=== PATIENT | male | born 1960 | race Caucasian/White ===

== ENCOUNTER 2016-07-17 17:04 | Emergency (ER) | payer OTHER ==
[2016-07-17] MEDS ORDERED: LIDOCAINE 2% ABBOJECT 100 MG/5 ML SYRINGE ONE (17:39)
[2016-07-17] MEDS ORDERED: LIDOCAINE 2% 10 ML MDV ONE (17:39)
[2016-07-17] MEDS ORDERED: LIDOCAINE 2% 10 ML MDV SUBQ STA (17:39)
[2016-07-17] MEDS ORDERED: HYDROcod/ACETAM 5/325 MG TABLET PO STA (18:07)
[2016-07-17] MEDS ORDERED: CEPHALEXIN 250 MG CAPSULE PO STA (18:07)
[2016-07-17] MEDS ORDERED: HYDROcod/ACETAM 5/325 MG TABLET ONE (18:19)
[2016-07-17] MEDS ORDERED: CEPHALEXIN 250 MG CAPSULE PO ONE (18:19)
== END 2016-07-17 19:27 | disposition home or self-care (01) ==
DX: S61.211A Laceration without foreign body of left index finger without damage to nail, initial encounter (principal); W31.2XXA Contact with powered woodworking and forming machines, initial encounter
CPT/HCPCS: 12042; 73140; 99283; A9270

== ENCOUNTER 2016-11-20 15:08 | Outpatient (CLI) | payer OTHER | END 2016-11-20 15:09 | disposition EMS.NT | LOC: EMS 15:08 | PROVIDERS: ATTEND Surgery | DX: R07.9 Chest pain, unspecified (principal) ==

== ENCOUNTER 2020-05-26 08:33 | Outpatient (CLI) | payer OTHER ==
[2020-05-26 15:06] LABS: HGB - HEMOGLOBIN 14.8 g/dL (14.0-18.0); MEAN CORPUSCULAR HEMOGLOBIN 32.2 pg (27.0-31.0); MEAN CORPUSCULAR HGB CONC 32.8 g/dL (32.0-36.0); MEAN CORPUSCULAR VOLUME 98.3 fL (80.0-94.0); MEAN PLATELET VOLUME 11.2 fL (7.4-11.4); RED BLOOD COUNT 4.59 10^6/uL (4.70-6.10); RED CELL DISTRIBUTION WIDTH 12.7 % (12.0-15.0); WHITE BLOOD COUNT 4.7 x10^3/uL (4.8-10.8)
[2020-05-26 15:50] LABS: BUN - BLOOD UREA NITROGEN 17 mg/dL (6-20); CALCIUM 9.5 mg/dL (8.5-10.3); CARBON DIOXIDE - CO2 25 mmol/L (21-32); CHLORIDE 102 mmol/L (101-111); CHOL/HDL RATIO 3.2 (<5.0); CHOLESTEROL 182 mg/dL; GLUCOSE 106 mg/dL (70-100); HDL CHOLESTEROL 57 mg/dL; LDL CHOLESTEROL,CALCULATED 115 mg/dL; VLDL CHOLESTEROL 10 mg/dL
[2020-05-27 12:07] LABS: HEPATITIS C ANTIBODY NON-REACTIVE (NON-REACTIVE)
[2020-05-27 15:14] LABS: HIV AG/AB 4TH GEN NON-REACTIVE (NON-REACTIVE)
== END 2020-05-26 08:34 | disposition home or self-care (01) ==
LOC: LAB.S 08:33
PROVIDERS: ATTEND Family Medicine
DX: Z01.89 Encounter for other specified special examinations (principal); G35 Multiple sclerosis; R73.9 Hyperglycemia, unspecified; Z13.6 Encounter for screening for cardiovascular disorders; Z11.59 Encounter for screening for other viral diseases; Z11.4 Encounter for screening for human immunodeficiency virus [HIV]
CPT/HCPCS: 36415; 80048; 80061; 82607; 83721; 84153; 84443; 85027; 86803; 87389

== ENCOUNTER 2022-07-09 11:05 | Outpatient (CLI) | payer OTHER | END 2022-07-09 23:59 | disposition left against medical advice (07) | LOC: EMS 11:05 | DX: R07.89 Other chest pain (principal) ==

== ENCOUNTER 2022-07-09 12:13 | Emergency (ER) | payer OTHER ==
[2022-07-09 12:43] LABS: BASOPHILS # (AUTO) 0.1 10^3/uL (0.0-0.1); BASOPHILS % (AUTO) 0.9 %; EOSINOPHILS # (AUTO) 0.1 10^3/uL (0.0-0.7); EOSINOPHILS % (AUTO) 2.2 %; HCT - HEMATOCRIT 45.3 % (42.0-52.0); HGB - HEMOGLOBIN 15.2 g/dL (14.0-18.0); LYMPHOCYTES # (AUTO) 1.9 10^3/uL (1.5-3.5); LYMPHOCYTES % (AUTO) 30.1 %; MEAN CORPUSCULAR HEMOGLOBIN 31.5 pg (27.0-31.0); MEAN CORPUSCULAR HGB CONC 33.6 g/dL (32.0-36.0); MEAN CORPUSCULAR VOLUME 93.8 fL (80.0-94.0); MEAN PLATELET VOLUME 10.2 fL (7.4-11.4); MONOCYTES # (AUTO) 0.8 10^3/uL (0.0-1.0); MONOCYTES % (AUTO) 11.6 %; NEUTROPHILS # (AUTO) 3.5 10^3/uL (1.5-6.6); PLT - PLATELET COUNT 205 10^3/uL (130-450); RED BLOOD COUNT 4.83 10^6/uL (4.70-6.10); RED CELL DISTRIBUTION WIDTH 12.2 % (12.0-15.0); WHITE BLOOD COUNT 6.4 x10^3/uL (4.8-10.8)
--- NOTE | 2022-07-09 12:55 | ED Physician Documentation ---
PD HPI CHEST PAIN - Stated complaint Stated Complaint: CHEST PX - Chief complaint Chief Complaint: Cardiac - History obtained from History obtained from: Patient, Family - History of Present Illness Pain level max: 3 Pain level now: 1 Associated symptoms: No: Shortness of air, Diaphoresis, Nausea, Vomiting, Feeling faint / dizzy, General Weakness, Palpitations, Cough - Additional information Additional information: Patient is a 61-year-old male who presents to the emergency department with constant chest pain for the past 7 days. He describes it as dull and in the center of the chest. It does not change with exertion, inspiration, eating or drinking. Nothing seems to make it better or worse. Nonradiating. No difficulty breathing. No sweating. Has not had similar symptoms previously but does have a longstanding history of GERD. Denies any cardiac history. No history of stents or bypasses. Review of Systems Constitutional: denies: Fever, Chills Respiratory: denies: Cough GI: denies: Nausea, Vomiting, Diarrhea Skin: denies: Rash Musculoskeletal: denies: Neck pain, Back pain Neurologic: denies: Headache PD PAST MEDICAL HISTORY - Past Medical History Cardiovascular: None Respiratory: None Endocrine/Autoimmune: None GI: None : None Psych: None Musculoskeletal: None Derm: Other - Past Surgical History Past Surgical History: Yes HEENT: Cataracts - Present Medications Home Medications: Ambulatory Orders Medication Instructions Recorded Confirmed Hydrocodone/Acetaminophen [[place] 1 each PO Q6H PRN #15 tablet 07/17/16 5-325 Tablet] cephALEXin [Keflex] 500 mg PO QID #20 capsule 07/17/16 - Allergies Allergies/Adverse Reactions: Allergies Allergy/AdvReac Type Severity Reaction Status Date / Time No Known Drug Allergies Allergy Verified 07/09/22 12:24 - Social History Does the pt smoke?: No Smoking Status: Never smoker Does the pt drink ETOH?: Yes Does the pt have substance abuse?: No - Immunizations Immunizations are current?: Yes PD ED PE NORMAL - Vitals Vital signs reviewed: Yes - General General: Alert and oriented X 3, No acute distress - HEENT HEENT: Moist mucous membranes - Neck Neck: Supple, no meningeal sign - Cardiac Cardiac: RRR, Strong equal pulses - Respiratory Respiratory: No respiratory distress, Clear bilaterally - Abdomen Abdomen: Soft, Non tender, Non distended - Derm Derm: Warm and dry - Extremities Extremities: No edema, No calf tenderness / cord - Neuro Neuro: Alert and oriented X 3 - Psych Psych: Normal mood, Normal affect Results - Vitals Vitals: Vital Signs - 24 hr 07/09/22 07/09/22 12:20 13:06 Temperature 36.5 C Heart Rate 69 61 Respiratory 16 22 Rate Blood Pressure 146/97 H 136/95 H O2 Saturation 100 100 Oxygen O2 Source Room air - EKG (time done) 1226 Rate: Rate (enter#) (59) Rhythm: NSR Thornton: Normal Intervals: Normal UT QRS: Normal Ischemia: Normal ST segments - Labs Labs: Laboratory Tests 07/09/22 07/09/22 07/09/22 12:39 12:39 12:39 WBC 6.4 RBC 4.83 Hgb 15.2 Hct 45.3 MCV 93.8 MCH 31.5 H MCHC 33.6 RDW 12.2 Plt Count 205 MPV 10.2 Neut # (Auto) 3.5 Lymph # (Auto) 1.9 Cobb # (Auto) 0.8 Eos # (Auto) 0.1 Baso # (Auto) 0.1 Absolute Nucleated RBC 0.00 Nucleated RBC % 0.0 Sodium 137 Potassium 4.2 Chloride 105 Carbon Dioxide 28 Anion Gap 4.0 L BUN 17 Creatinine 0.9 Estimated GFR (MDRD) 85 L Glucose 117 H Calcium 9.6 Total Bilirubin 0.7 AST 26 ALT 29 Alkaline Phosphatase 50 Troponin I High Sens 4.4 Total Protein 7.5 Albumin 4.4 Globulin 3.1 Albumin/Globulin Ratio 1.4 Lipase 35 - Rads (name of study) Chest x-ray Radiology: Final report received, See rad report PD Medical Decision Making - ED course Complexity details: reviewed results, re-evaluated patient, considered differential, d/w patient ED course: 61-year-old male presents to the emergency department with chest pain. Unclear etiology. Has been constant for 7 days. Negative high-sensitivity troponin. Nonexertional. Not consistent with ACS. Possible esophageal? It does have a history of GERD. Recommend an endoscopy as an outpatient to evaluate for esophagitis, Jimenez's or cancer. Also recommend a cardiac stress test. Patient counseled regarding signs and symptoms for which I believe and urgent re-evaluation would be necessary. Patient with good understanding of and agreement to plan and is comfortable going home at this time This document was made in part using voice recognition software. While efforts are made to proofread this document, sound alike and grammatical errors may occur. Departure - Departure Disposition: 01 Home, Self Care Clinical Impression: Chest pain Qualifiers: Chest pain type: unspecified Qualified Code(s): R07.9 - Chest pain, unspecified Condition: Good Instructions: ED Chest Pain Atypical Unkn Cause Follow-Up: Your,doctor in 1 week [Other] Comments: Please follow-up with your doctor for further care. Please return if you worsen. Your heart test did not show any acute abnormalities today. It is recommended that you have a cardiac stress test with your doctor. That also is possible that this could be due to something such as a worsening of your reflux. Please follow-up with your doctor closely for further care. You should also have an endoscopy scheduled with your doctor to evaluate for any evidence of worsening GERD/gastritis/esophagitis/cancer. Discharge Date/Time: 07/09/22 14:03
[2022-07-09 13:08] LABS: ALBUMIN 4.4 g/dL (3.2-5.5); ALBUMIN/GLOBULIN RATIO 1.4 (1.0-2.2); BILIRUBIN,TOTAL 0.7 mg/dL (0.2-1.0); CALCIUM 9.6 mg/dL (8.5-10.3); CREATININE 0.9 mg/dL (0.6-1.2); POTASSIUM 4.2 mmol/L (3.5-5.0); TOTAL PROTEIN 7.5 g/dL (6.7-8.2)
[2022-07-09 13:09] VITALS: BP 136/95
--- NOTE | 2022-07-09 13:09 | XRAY Report ---
PROCEDURE: Chest 1 View X-Ray INDICATIONS: Chest Pain TECHNIQUE: One view of the chest was acquired. COMPARISON: None. FINDINGS: Surgical changes and devices: None. Lungs and pleura: No pleural effusions or pneumothorax. Lungs are clear. Mediastinum: Mediastinal contours appear normal. Heart size is normal. Bones and chest wall: No suspicious bony lesions. Overlying soft tissues appear unremarkable. IMPRESSION: No acute pulmonary process. Reviewed by: Liliya Floyd MD on 07/09/2022 1:08 PM [facility] Approved by: Liliya Floyd MD on 07/09/2022 1:08 PM [facility] Station ID: [id number]
== END 2022-07-09 14:03 | disposition home or self-care (01) ==
LOC: ED 12:13
DX: R07.9 Chest pain, unspecified (principal)
CPT/HCPCS: 36415; 80053; 83690; 84484; 85025; 93005; 99283; 99284